=== PATIENT | female | born 1955 | race Caucasian/White ===

== ENCOUNTER 2020-07-12 07:37 | Emergency (ER) | payer OTHER ==
[~2020-07-12] VITALS: Ht 149.9 cm; Wt 63.5 kg
[2020-07-12 07:41] VITALS: BP_SYST 177
[2020-07-12 08:22] LABS: BASOPHILS % (AUTO) 0.1 % (0.0-2.0); HEMATOCRIT 33.3 % (36-48); HEMOGLOBIN 11.6 g/dL (12.0-16.0); LYMPHOCYTES # (AUTO) 0.6 K/uL (1.0-5.5); LYMPHOCYTES % (AUTO) 7.4 % (20.5-51.5); MEAN CORPUSCULAR HEMOGLOBIN 32 pg (27-31); MEAN CORPUSCULAR HGB CONC 35 % (32-36); MEAN CORPUSCULAR VOLUME 91 fL (79.0-98.0); MONOCYTES # (AUTO) 0.3 K/uL (0.0-1.0); MONOCYTES % (AUTO) 3.3 % (1.7-9.3); NEUTROPHILS # (AUTO) 7.5 K/uL (1.8-7.7); NEUTROPHILS % (AUTO) 89.2 % (40.0-70.0); PLATELET COUNT (AUTO) 271 K/uL (130-430); RED BLOOD CELL COUNT(AUTO) 3.68 MIL/uL (4.2-6.2); RED CELL DISTRIBUTION WIDTH 13.2 % (9.0-15.0); WHITE BLOOD COUNT (AUTO) 8.4 K/uL (4.8-10.8)
[2020-07-12] MEDS ORDERED: IOHEXOL 350 mgI/mL, 150 ML INFUS..BTL IV ONE (08:37)
[2020-07-12 08:54] LABS: ANION GAP 14 (5-15); CALCIUM 8.2 mg/dL (8.4-11.0); GFR AFRICAN AMERICAN 108 mL/min (>90); GLUCOSE 96 mg/dL (70-99); UREA NITROGEN, BLOOD 15 mg/dL (8-21)
[2020-07-12 08:58] LABS: ALANINE AMINOTRANSFERASE 28 U/L (12-78); ALBUMIN 2.3 g/dL (3.4-4.8); ASPARTATE AMINOTRANSFERASE 70 U/L (10-37); TOTAL BILIRUBIN 0.6 mg/dL (0.0-1.0)
[2020-07-12] MEDS ORDERED: NACL 0.9% 1,000 ML IV ONE (09:00)
[2020-07-12] MEDS ORDERED: POTASSIUM CHLORIDE 20 MEQ/PKT PACKET PO ONE (09:00)
[2020-07-12 09:02] LABS: CHLORIDE 83 mmol/L (98-107); POTASSIUM 2.8 mmol/L (3.5-5.1); SODIUM SERUM 119 mmol/L (136-145)
[2020-07-12 09:04] LABS: BILIRUBIN,URINE NEGATIVE (NEGATIVE); BLOOD, URINE 2+ (NEGATIVE); CLARITY/URINE CLEAR (CLEAR); COLOR,URINE YELLOW (YELLOW); GLUCOSE,URINE NEGATIVE (NEGATIVE); KETONES,URINE 2+ (NEGATIVE); LEUKOCYTE ESTERASE ,URINE NEGATIVE (NEGATIVE); NITRITE, URINE NEGATIVE (NEGATIVE); PROTEIN URINE 2+ (NEGATIVE)
[2020-07-12 09:08] LABS: ACETONE, SERUM POSITIVE (NEGATIVE)
[2020-07-12] MEDS ORDERED: ATEN-41 PO (09:17)
[2020-07-12] MEDS ORDERED: LISI-209 PO (09:17)
[2020-07-12] MEDS ORDERED: OMEP20TA20 PO (09:17)
[2020-07-12 09:28] LABS: BACTERIA,URINE RARE /HPF (None Seen); WBC,URINE 0-3 /HPF (0-3)
[2020-07-12 09:29] LABS: FINE GRANULAR CASTS,URINE 0-10 /LPF (None Seen)
[2020-07-12] MEDS ORDERED: HYDROcodone/ACETAMIN 7.5-325 MG TAB PO ONE (10:30)
[2020-07-12] MEDS ORDERED: cefTRIAXone 1 GM in D5W 50 ML IV ONE (10:30)
[2020-07-12] MEDS ORDERED: IBUPROFEN 800 MG TABLET PO ONE (10:30)
[2020-07-12 10:39] LABS: CREATININE 0.79 mg/dL (0.55-1.30); POTASSIUM 3.9 mmol/L (3.5-5.1)
[2020-07-12] MEDS ORDERED: cefTRIAXone 1 GM VIAL ONE (10:43)
[2020-07-12 12:35] LABS: CALCIUM 7.9 mg/dL (8.4-11.0); CREATININE 0.74 mg/dL (0.55-1.30); POTASSIUM 3.3 mmol/L (3.5-5.1)
[2020-07-12 14:18] VITALS: BP_SYST 120
== END 2020-07-12 14:18 ==
LOC: SED 07:37
DX: E87.1 Hypo-osmolality and hyponatremia (principal); E87.6 Hypokalemia; Z20.822 Contact with and (suspected) exposure to COVID-19; Z79.899 Other long term (current) drug therapy
CPT/HCPCS: 36415; 70450; 71045; 71275; 76376; 80048; 80053; 81000; 82009; 82550; 82962; 83605; 84484; 85025; 85610; 85730; 86140; 87040; 87426; 93005; 96361; 96365; 99285; J0696; J7030; Q9967